=== PATIENT | male | born 1955 | race Caucasian/White ===

== ENCOUNTER 2017-04-21 07:57 | Day surgery (SDC) | payer OTHER ==
[~2017-04-21 07:57] MED LIST: LIDOCAINE HCL 1% MPF SOL ONE; PROPOFOL 500 MG/50 ML EMU IV ONE
[2017-04-21 10:15] VITALS: BP 130/83; PULSE 81; RESP 16; TEMP 98.3; O2SAT 96
== END 2017-04-21 10:34 | disposition home or self-care (01) | DRG 951 ==
LOC: SURG 07:57
PROVIDERS: ATTEND Surgery
DX: Z12.11 Encounter for screening for malignant neoplasm of colon (principal); D12.2 Benign neoplasm of ascending colon; K64.4 Residual hemorrhoidal skin tags; K57.30 Diverticulosis of large intestine without perforation or abscess without bleeding; D12.4 Benign neoplasm of descending colon; D12.3 Benign neoplasm of transverse colon
CPT/HCPCS: 99001; J2001; J2704